=== PATIENT | male | born 1975 | race African-American/Black ===

== ENCOUNTER 2019-12-19 08:27 | Day surgery (SDC) | payer OTHER ==
[~2019-12-19] VITALS: Ht 170.2 cm; Wt 89.5 kg
[~2019-12-19 08:27] MED LIST: EPHEDRINE 50 MG/ML, 1ML IVPush PRN; FENTANYL PF 100 MCG/2ML IV PRN; HYDROmorphone 1 MG/ML, 1ML INJ IVPush PRN; LABETALOL 5MG/ML, 20ML IV PRN; MEPERIDINE/PF 25MG/0.5ML IVPush PRN; ONDANSETRON 2MG/ML, 2ML IVPush PRN; OXYcodone 5 MG/5 ML ORAL.SOL UDC PO PRN; PLEASE ENTER ALLERGIES MC SCH; PLEASE ENTER HEIGHT AND WEIGHT MC SCH; PROMETHAZINE 25 MG/ML, 1ML IVPush PRN; hydrALAzine 20 MG/ML, 1ML IV PRN
[2019-12-19] MEDS ORDERED: LACTATED RINGERS 1,000 ML IV SCH (09:04)
[2019-12-19] MEDS ORDERED: HYDR25TA6 PO (09:04)
[2019-12-19] MEDS ORDERED: MIDAZOLAM 1 MG/ML, 2ML ONE (09:20)
[2019-12-19] MEDS ORDERED: FENTANYL PF 100 MCG/2ML ONE (09:21)
[2019-12-19] MEDS ORDERED: ACETAMINOPHEN 500 MG TABLET PO ONE (09:30)
[2019-12-19] MEDS ORDERED: CHLORHEXIDINE 15 ML UDC MM ONE (09:30)
[2019-12-19] MEDS ORDERED: GABAPENTIN 300 MG CAPSULE PO ONE (09:30)
[2019-12-19 09:32] VITALS: BP 148/93
[2019-12-19] MEDS ORDERED: BUPIVACAINE/PF 0.5% ONE (10:51)
[2019-12-19] MEDS ORDERED: KETOROLAC 30 MG/1 ML ONE (10:51)
[2019-12-19] MEDS ORDERED: LIDOCAINE-MPF 2% ,5ML ONE (10:51)
[2019-12-19] MEDS ORDERED: ONDANSETRON 2MG/ML, 2ML ONE (11:19)
[2019-12-19] MEDS ORDERED: CEFAZOLIN 1,000 MG ONE (11:19)
[2019-12-19] MEDS ORDERED: DEXAMETHASONE 4 MG/ML, 1ML ONE (11:19)
[2019-12-19] MEDS ORDERED: SUCCINYLCHOLINE 20 MG/ML, 10ML ONE (11:19)
[2019-12-19] MEDS ORDERED: PROPOFOL 10 MG/ML, 20ML ONE (11:19)
== END 2019-12-19 13:55 | disposition home or self-care (01) ==
LOC: OUT 08:27 → EDSEX 10:00 → OUT 13:55
PROVIDERS: ATTEND Orthopaedic Surgery
DX: S82.62XA Displaced fracture of lateral malleolus of left fibula, initial encounter for closed fracture (principal); I10 Essential (primary) hypertension; X58.XXXA Exposure to other specified factors, initial encounter; Y93.89 Activity, other specified; Y92.89 Other specified places as the place of occurrence of the external cause; Y99.8 Other external cause status; Z79.899 Other long term (current) drug therapy; Z87.891 Personal history of nicotine dependence; Z82.3 Family history of stroke
CPT/HCPCS: 27792; 64450; 73600; C1713; J0330; J0690; J1100; J1885; J2250; J2405; J2704; J3010; J7120; 76000